=== PATIENT | female | born 1995 | race Caucasian/White ===

== ENCOUNTER 2016-06-19 18:29 | Emergency (ER) | payer SELFPAY ==
--- NOTE | 2016-06-19 18:47 | NUR ---
PATIENT LEFT WITHOUT BEING SEEN BY DR. LANE. NO FURTHER CARE PROVIDED FOR PATIENT. PT. STATES SHE WANTS TO TALK TO HER INSURANCE COMPANY FIRST AND WILL COME BACK AFTER
== END 2016-06-19 18:45 | disposition left against medical advice (07) ==
LOC: MED 18:29
DX: M25.529 Pain in unspecified elbow (principal); Z53.21 Procedure and treatment not carried out due to patient leaving prior to being seen by health care provider